=== PATIENT | female | born 1945 | race Caucasian/White ===

== ENCOUNTER 2016-09-28 11:47 | Outpatient (CLI) | payer MEDICARE ==
[~2016-09-28] VITALS: Ht 154.9 cm; Wt 114.8 kg
--- NOTE | ~2016-09-28 | HEMODYNAMI ---
PATIENT:FIDENCIO KHANNA MEDICAL RECORD: [id number] : 49 LOCATION:[facility] [address] ADMISSION DATE: 09/28/16 Generatedon:09/28/201616:24 Patient name: FIDENCIO KHANNA Patient #: [id number] SSN: : 1945 Date of study: 09/28/2016 Page: Of Hemodynamic Procedure Report Patient Data Patient Demographics Procedure consent was obtained First Name: FIDENCIO Gender: Female Last Name: JEY : 1945 [facility] Initial: Florentino Age: 71 year(s) Patient #: [id number] Race: Additional ID: [id number] Contact details Address: [place] [address] State: [place] City: [place] Zip code: [address] Past Medical History Allergies Allergen Reaction Date Comments Reported Other allergy 09/28/2016 Crestor, Neosporin, Latex, Biaxin, Sulfa, Surgical Tape Admission Admission Data Admission Date: 09/28/2016 Admission Time: 12:33 Room #: D.2124 Lab Results Lab Result Date: 09/28/2016 Lab Result Time: 0:00 Biochemistry Name Units Result Min Max CK-MB ng/ml 0.5 --(*---)-- 0 3.6 Creatinine mg/dl 1.2 --(---*)-- 0.6 1.3 Creatinine l 58 --(*---)-- 21 215 Kinase Troponin l ng/ml 0.017 --(-*--)-- 0 0.06 CBC Name Units Result Min Max Hematocrit % 31.1 *-(----)-- 42 54 Hemoglobin g/dl 9.7 *-(----)-- 13.5 17.5 Procedure Procedure Types Cath Procedure Diagnostic Procedure LHC LHC w/Coronaries Miscellaneous Procedures Moderate Sedation up to 15 minutes Procedure Description Procedure Date Procedure Date: 09/28/2016 Procedure Start Time: 16:09 Procedure End Time: 16:23 Procedure Staff Name Function Gonzalo Hidalgo MD Performing Physician Gus Trujillo RT Scrub Abelino Mott RN Nurse Gisela Silva RT Monitor Procedure Data Cath Procedure Fluoroscopy Diagnostic fluoroscopy Total fluoroscopy Time: 4 time: 4 min min Diagnostic fluoroscopy Total fluoroscopy dose: 755 dose: 755 mGy mGy Contrast Material Contrast Material Type Amount (ml) Isovue 300 74 Entry Location Entry Primary Successful Side Size Upsize Upsize Entry Closure Padron ccessful Closure Location (Fr) 1 (Fr) 2 (Fr) Remarks Device Remarks Radial Right 6 Fr Mechanical artery Short Compression Estimated blood loss: 5 ml Diagnostic catheters Device Type Used For End Catheter Placement Medtronic Dexterity 5Fr LV Angiography YOUNG 4.0 catheter (NO CHARGE) Medtronic Dexterity 5Fr Right Coronary YOUNG 4.0 catheter (NO Angiography CHARGE) Procedure Complications No complications Procedure Medications Medication Administration Route Dosage Oxygen NC 2 l/min Heparin Flush Bag added to field 2 bags (1000units/500ml NS) 0.9% NaCl I.V. 100 ml/hr Radial Cocktail added to field 1 syringe (Verapomil 2mg/Nitro 400mcg/Heparin 1500units) Fentanyl I.V. 50 mcg Versed I.V. 1 mg Radial Cocktail added to field 1 syringe (Verapomil 2mg/Nitro 400mcg/Heparin 1500units) Fentanyl I.V. 50 mcg Versed I.V. 1 mg Hemodynamics Rest HGB: 9.7 (g/dl) Heart Rate: 72 (bpm) Snapshots Pre Cath Intra NCS Post Cath Vital Signs Time Heart Resp SPO2 etCO2 HA5upwi NIBP (mmHg) Rhythm Pain Sedation Rate (ipm) (%) (mmHg) (mmHg) Status Level (bpm) 15:53:41 73 20 95 0 0 165/74(124) NSR 0 (11) 10(A) , No pain 15:58:05 69 17 97 0 0 168/74(124) NSR 0 (11) 10(A) , No pain 16:02:31 67 17 90 0 0 164/70(108) NSR 0 (11) 10(A) , No pain 16:06:53 65 15 87 0 0 153/69(114) NSR 0 (11) 9(A) , No pain 16:11:18 73 15 92 0 0 169/66(133) NSR 0 (11) 9(A) , No pain 16:15:44 75 17 88 0 0 147/54(93) NSR 0 (11) 9(A) , No pain 16:20:04 72 16 90 0 0 164/66(112) NSR 0 (11) 10(A) , No pain Medications Time Medication Route Dose Verified Delivered Reason Notes Effectiveness by by 15:57:35 Oxygen NC 2 l/min Abelino Roca Per Pantera Mott RN physician RN 15:57:46 Heparin Flush added 2 bags Abelino Roca used for Bag to Pantera Mott RN procedure (1000units/500ml field RN NS) 15:59:02 0.9% NaCl I.V. 100 Abelino Roca Per ml/hr Pantera Mott RN physician RN 15:59:24 Radial Cocktail added 1 Abelino Roca used for (Verapomil to syringe Pantera Mott RN procedure 2mg/Nitro field RN 400mcg/Heparin 1500units) 16:04:02 Fentanyl I.V. 50 mcg Abelino Roca for sedation Pantera Mott RN RN 16:04:08 Versed I.V. 1 mg Abelino Roca for sedation Pantera Mott RN RN 16:10:39 Radial Cocktail added 1 Abelino Gonzalo for (Verapomil to syringe Pantera Hidalgo MD vasodilation 2mg/Nitro field RN 400mcg/Heparin 1500units) 16:12:10 Fentanyl I.V. 50 mcg Abelino Roca for sedation Pantera Mott RN RN 16:12:14 Versed I.V. 1 mg Abelino Roca for sedation Pantera Mott RN informatics spec Log Time Note 15:32:33 Abelino Mott RN sent for patient. Start room use. 15:32:34 Time tracking: Regular hours 15:32:41 Plan of Care:Hemodynamics will remain stable., Cardiac rhythm will remain stable., Comfort level will be maintained., Respiratory function will remain adequate., Patient/ family verbilizes understanding of procedure., Procedure tolerated without complication., Recovers from procedure without complications.. 15:41:39 Patient received from PCU to CCL 1 Alert and oriented. Tansferred to table in Supine position. 15:41:44 Warm blankets applied, and robert hugger turned on for patient comfort. 15:41:45 Correct patient and procedure confirmed by team. 15:41:46 Signed procedure consent form obtained from patient. 15:41:46 ECG and BP/O2 sat monitors applied to patient. 15:41:47 Full Disclosure recording started 15:52:39 Vital chart was started 15:54:16 Baseline sample Acquired. 15:54:20 Rhythm: sinus rhythm 15:54:34 H&P Date Dictated: 09/28/2016 Within 30 days and on chart., H&P Addendum completed by physician on day of procedure. (MUST COMPLETE FOR ALL OUTPATIENTS). 15:55:34 Pre-procedure instructions explained to patient. 15:55:34 Pre-op teaching completed and patient verbalized understanding. 15:55:35 Family in patients room. 15:55:41 Patient NPO since Midnight. 15:56:35 Patient allergic to Other allergyCrestor, Neosporin, Latex, Biaxin, Sulfa, Surgical Tape 15:56:37 Is the patient allergic to Iodine/contrast media? No. 15:56:45 Is patient on blood thinner?No 15:56:48 Patient diabetic? Yes. 15:56:49 If diabetic: On Metformin? Yes 15:56:53 If on Metformin: Last Dose? 09/28/2016 15:56:56 Previous problem with sedation/anesthesia? No ? 15:56:57 Snore? Yes 15:56:59 Sleep apnea? Yes 15:56:59 Deviated septum? No 15:57:00 Opens mouth fully? Yes 15:57:01 Sticks out tongue? Yes 15:57:09 Airway obstruction? Yes Asthma 15:57:12 Dentures? Yes In 15:57:15 Pre procedure: right dorsailis pedis pulse 1+ Palpable, but thready & weak; easily obliterated 15:57:17 Modified Bradley's test Ulnar < 7 seconds 15:57:19 Patient pain scale 0/10 ?. 15:57:28 IV patent on arrival in left antecubital with 0.9% NaCl at O. 15:57:35 Oxygen 2 l/min NC was administered by Abelino oMtt RN; Per physician; 15:57:46 Heparin Flush Bag (1000units/500ml NS) 2 bags added to field was administered by Abelino Mott RN; used for procedure; 15:58:12 Lab Result : Creatinine 1.2 mg/dl 15:58:12 Lab Result : Creatinine Kinase 58 l 15:58:12 Lab Result : CK-MB 0.5 ng/ml 15:58:12 Lab Result : Troponin l 0.017 ng/ml 15:58:12 Lab Result : Hemoglobin 9.7 g/dl 15:58:12 Lab Result : Hematocrit 31.1 % 15:58:16 Lab results completed and on chart. 15:58:19 Right Radial & Right Groin area was prepped with chlora-prep and draped in sterile fashion 15:58:21 Alarms reviewed by R. N. 15:58:21 Sharps counted by scrub and verified by R.N. 15:58:25 Use device set Radial Dx 15:58:26 Acist Syringe opened to sterile field. 15:58:27 Medline Cath Pack opened to sterile field. 15:58:27 Bag Decanter opened to sterile field. 15:58:28 Terumo 6Fr Slender Glidesheath opened to sterile field. 15:58:28 St Monroe 260cm J .035 wire opened to sterile field. 15:58:29 Acist Hand Control opened to sterile field. 15:58:29 Acist Manifold opened to sterile field. 15:58:30 Tegaderm 4 x 4 opened to sterile field. 15:58:30 MBrace Wrist Support opened to sterile field. 15:59:02 0.9% NaCl 100 ml/hr I.V. was administered by Abelino Mott RN; Per physician; 15:59:24 Radial Cocktail (Verapomil 2mg/Nitro 400mcg/Heparin 1500units) 1 syringe added to field was administered by Abelino Mott RN; used for procedure; 16:03:30 Final Timeout: patient, procedure, and site verified with staff and physician. All members of the team are in agreement. 16:03:35 Right Radial site verified by team. 16:03:44 Physical assessment completed. ASA score P 2 - A patient with mild systemic disease as per Gonzalo Hidalgo MD. 16:03:48 Sedation plan: IV Moderate Sedation Versed, Fentanyl 16:04:02 Fentanyl 50 mcg I.V. was administered by Abelino Mott RN; for sedation; 16:04:08 Versed 1 mg I.V. was administered by Abelino Mott RN; for sedation; 16:07:26 Zero performed for pressure channel P1 16:09:47 Procedure started. 16:09:54 Local anesthetic to right radial artery with Lidocaine 2% by Gonzalo Hidalgo MD.INITIAL ACCESS ONLY 16:10:09 A 6 Fr Short sheath was inserted into the Right Radial artery 16:10:39 Radial Cocktail (Verapomil 2mg/Nitro 400mcg/Heparin 1500units) 1 syringe added to field was administered by Gonzalo Hidalgo MD; for vasodilation; 16:11:46 A Medtronic Dexterity 5Fr YOUNG 4.0 catheter (NO CHARGE) was advanced over the wire and used for LV Angiography. 16:12:10 Fentanyl 50 mcg I.V. was administered by Abelino Mott RN; for sedation; 16:12:14 Versed 1 mg I.V. was administered by Abelino Mott RN; for sedation; 16:12:30 LV gram done using MENDES 16:12:34 Injector settings: Ml/sec: 5, Volume: 15, 16:12:39 EF : 55 % 16:13:41 A Medtronic Dexterity 5Fr YOUNG 4.0 catheter (NO CHARGE) was advanced over the wire and used for Right Coronary Angiography. 16:14:02 Cordis 6FR XBLAD 3.5 guide catheter opened to sterile field. 16:14:09 Catheter removed. 16:15:06 6 Fr XBLAD 3.5 guide catheter was inserted over the wire 16:17:03 Guide Catheter removed. unable to cannulate vessel. 16:17:13 Medtronic Launcher 6Fr EBU 3.0 guide catheter opened to sterile field. 16:17:25 6 Fr EBU 3.0 guide catheter was inserted over the wire 16:17:29 LCA angiography performed. 16:17:49 Catheter removed. 16:17:58 Sheath removed intact; hemostasis achieved with Mechanical Compression to the Right Radial artery. 16:18:08 Terumo TR Band Standard opened to sterile field. 16:18:12 Procedure ended.(Physican Out) 16:18:26 Fluoroscopy time 04.00 minutes. 16:18:29 Fluoroscopy dose: 755 mGy 16:18:29 Flurop Dose total: 755 16:18:41 Contrast amount:Isovue 300 74ml. 16:18:42 Sharps counted by scrub and verified by R.N. 16:18:44 TR band inflated with 12cc of air. 16:18:45 Insertion/operative site no bleeding no hematoma. 16:18:56 Post right radial artery:stable, clean and dry 16:19:01 Post Procedure Pulses reassessed and unchanged 16:19:13 Post-procedure physical assessment completed. ASA score P 2 - A patient with mild systemic disease as per Gonzalo Hidalgo MD. 16:19:16 Post procedure rhythm: unchanged. 16:19:18 Estimated blood loss: 5 ml 16:19:19 Post procedure instruction explained to patient.Patient verbalizes understanding. 16:19:20 Patient needs reinforcement of post procedure teaching. 16:19:29 Procedure type changed to Cath procedure, Diagnostic procedure, LHC, LHC w/Coronaries, Miscellaneous Procedures, Moderate Sedation up to 15 minutes 16:19:34 Procedure Complication : No complications 16:19:37 See physician's report for complete and final results. 16:20:24 Procedure and supply charges have been captured, reviewed, submitted and are correct. 16:23:29 Vital chart was stopped 16:23:31 Report given to Solutionary II. 16:23:34 Patient transfered to PCU with Bed. 16:23:43 Procedure ended. 16:23:43 Full Disclosure recording stopped 16:23:48 End room use (Document Last) Device Usage Item Name Manufacture Quantity Catalog Hospital Part Current Minimal Lot# / Number Charge Number Stock Stock Serial# Code Acist Acist 1 [id number] 950242 300818 20 Syringe Medical Systems Inc Medline Cardinal 1 [id number] 78765 071926 5 Cath Pack Health Bag Microtek 1 729314 82758 493712 5 Decanter Medical Inc. Terumo 6Fr Terumo 1 [id number] 528356 130424 170321 [address] [facility] [place] 1 306255 945806 697148 549834 30 260cm J .035 wire Acist Hand Acist 1 94975 449570 815602 370449 5 Control Medical Systems Inc Acist Acist 1 23718 934219 045194 281021 5 Celcuity Medical Systems Inc Tegaderm 4 3M 1 1626W 339383 606520 730795 5 x 4 MBrace Advanced 1 140-0250-00 548958 45602 943509 5 Wrist Vascular Support Dynamics Medtronic Medtronic 1 [id number] 280601 758910 5 Dexterity 5Fr YOUNG 4.0 catheter (NO CHARGE) Cordis 6FR Cardinal 1 [id number] 375059 647717 882716 10 XBLAD 3.5 Health guide catheter Medtronic Medtronic 1 [id number] 75926 626404 0 Launcher 6Fr EBU 3.0 guide catheter Terumo TR Terumo 1 [id number] 444846 322152 072197 40 Band Standard Signature Audit [place] Stage Time Signature Unsigned Intra-Procedure 09/28/2016 Gisela 4:24:10 PM Counts RT(R) Signatures Monitor : Gisela Signature : Counts RT Date : Time : [id number] [place] [address]
[2016-09-28 11:17] LABS: BASOPHILS 0.6 % (0-2); EOSINOPHILS 1.5 % (0-7); HEMATOCRIT 31.1 % (36.0-48.0); HEMOGLOBIN 9.7 g/dL (12-16); IMMATURE GRANULOCYTES 0.2 % (0-5); LYMPHOCYTES 30.3 % (15-50); MCH 26.7 pg (26.0-34.0); MCHC 31.2 g/dL (31.0-37.0); MCV 85.7 fL (80.0-100.0); MEAN PLATELET VOLUME 10.3 fL (7.4-10.4); MONOCYTES 5.9 % (2-11); NEUTROPHILS 61.5 % (40-80); PLATELET COUNT 226 10x3/uL (130-400); RBC 3.63 10x6/uL (4.00-5.40); RDW 14.2 % (11.5-14.5); WBC 5.4 10x3/uL (4.8-10.8)
[~2016-09-28 11:47] MED LIST: BENTYL10 MG PO; CELEXA20 MG PO; ESTRACE1 MG PO; GLIPIZIDE10 MG PO; IBUPROFEN800 MG PO; LISINOPRIL10 MG PO; NEURONTIN 300300 MG PO; NEURONTIN600 MG PO; PREVACID15 MG PO; SUDOGEST60 MG PO; SYNTHROID100 MCG PO; TOPROL XL50 MG PO; TYLENOL W/CODEI1 TAB PO
[2016-09-28 11:53] LABS: ALBUMIN 3.4 g/dL (3.4-5.0); ALKALINE PHOSPHATASE 69 U/L (46-116); ALT (SGPT) 20 U/L (10-68); BILIRUBIN - TOTAL 0.27 mg/dL (0.2-1.3); CALC OSMOLALITY 277 mosm/kg (275-300); CALCIUM 8.7 mg/dL (8.5-10.1); CARBON DIOXIDE 26.6 mmol/L (21.0-32.0); CHLORIDE - SERUM 104 mmol/L (98-107); CREATININE - SERUM 1.2 mg/dL (0.6-1.3); GLUCOSE 86 mg/dL (74-106); POTASSIUM - SERUM 4.3 mmol/L (3.5-5.1); PROTEIN - SERUM 6.9 g/dL (6.4-8.2); SODIUM 139 mmol/L (136-145); UREA NITROGEN 16 mg/dL (7-18); eGFR NON AFRICAN AMERICAN 47 mL/min (90-120)
[2016-09-28 12:06] LABS: CKMB 0.5 U/L (0.0-3.6); CREATINE KINASE 58 UL (21-215); TROPONIN-I < 0.017 ng/mL (0.000-0.060)
[2016-09-28 14:20] LABS: TROPONIN-I < 0.017 ng/mL (0.000-0.060)
[2016-09-28] MEDS ORDERED: BAYER CHEWABLE81 MG PO (14:45)
[2016-09-28] MEDS ORDERED: GLUCOPHAGE500 MG PO (14:45)
--- NOTE | 2016-09-28 16:22 | HP ---
PATIENT: FIDENCIO WALKER MEDICAL RECORD: [id number] ACCOUNT: [id number] LOCATION:[address] : 49 ADMISSION DATE: 09/28/16 HISTORY AND PHYSICAL EXAMINATION DIAGNOSES: 1. Chest pain compatible with angina. 2. 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 3. Hypertension. 4. Family history of coronary artery disease. 5. Irritable bowel. 6. Chronic NSAID use. HISTORY OF PRESENT ILLNESS: Mrs. Walker presents with anginal symptomatology, it has been quite severe, lasted over 1 hour today, classic chest pain for angina, dull aching sensation across the anterior chest associated with diaphoresis, radiation to the jaw area that was relieved with sublingual nitro in the Emergency Room. Her EKG is with no acute ST-T abnormalities. PHYSICAL EXAMINATION: GENERAL APPEARANCE: Well-nourished, well-developed, appears stated age. Level of distress, comfortable. PSYCHIATRIC: Mental status, alert, normal affect. Orientation, oriented to time, place and person. EYES: Lids and conjunctiva, noninjected. No discharge, no pallor. ENT: Lips, teeth, gums, normal dentition. Oropharynx, no cyanosis, no pallor. NECK: Carotid arteries, bilateral normal upstroke, no bruits, no thrills. JUGULAR VEINS: No jugular venous pressure or distention. CERVICAL LYMPH NODES: Nontender, nonenlarged. THYROID: Not enlarged. Nontender. No nodules. LUNGS: Respiratory effort, unlabored. CHEST: Normal curvature. No thoracic deformity. No chest wall tenderness. Percussion, resonant. Auscultation, clear. No wheezes, no rales, no rhonchi. CARDIOVASCULAR: Precordial exam, nondisplaced. No heaves or pericardial thrills. Rate and rhythm, regular. Heart sounds, normal S1, normal S2. No S3, no gallop, no rub. Systolic murmur, not heard. Diastolic murmur, not heard. EXTREMITIES: No cyanosis, no edema. Peripheral pulses, full and equal in all extremities, except as noted. No bruits appreciated. ABDOMEN: Soft, nondistended. Normal aorta. No bruit. Nontender. No masses. Liver, nontender, no hepatomegaly. Spleen, nontender, no splenomegaly. MUSCULOSKELETAL: No joint tenderness. No joint swelling. No erythema. NEUROLOGICAL: Normal gait, normal strength, normal tone. SKIN: Warm and dry. REVIEW OF SYSTEMS: The patient reports easy bruising but reports no swollen glands. The patient reports no fever, no night sweats, no significant weight gain, no significant weight loss. No significant exercise tolerance. The patient reports no dry eyes, no irritation, no vision change. Patient reports no difficulty hearing and no ear pain. Patient reports no frequent nose bleeds or nose and sinus problems. Patient reports on arm pain on exertion. No shortness of breath while lying down. No history of heart murmur. Patient reports no cough, no wheezing or coughing up blood. Patient reports no abdominal pain, no vomiting. Normal appetite. No diarrhea and not vomiting blood. No nausea and no constipation. Patient reports no incontinence. No difficulty urinating. No hematuria. No increased frequency. Patient reports HISTORY AND PHYSICAL [id number] FIDENCIO WALKER no muscle aches. No weakness, no arthralgias, no back pain. No swelling of the extremities. Patient reports no abnormal mole, no jaundice, no rashes. Reports no loss of consciousness. No weakness and no numbness. No seizures, dizziness, or headaches. The patient reports no depression, no sleep disturbance, feeling safe in a relationship and no alcohol abuse. Patient reports on fatigue. Reports no runny nose or sinus pressure. No itching, no hives, and no frequent sneezing. OVERALL IMPRESSION: Chest pain compatible with angina, most likely she has hemodynamically significant coronary artery disease. We will proceed with coronary angiography. Further care depends upon findings of the angiography. TRANSINT:[id number] Voice Confirmation ID: [id number] DOCUMENT ID: [id number] TAIWO KHANNA MD at 1622 CC: [id number] DICTATION DATE: 09/28/16 1157 AMPHIBIOUS OPERATIONS OFFICER: 09/28/16 1438 ADM IN [address] [id number] [place] [address]
[2016-09-28 17:14] VITALS: BP 113/59; Ht 154.9 cm; Wt 114.8 kg
[2016-09-28 17:30] VITALS: BP 134/49
[2016-09-28 20:00] VITALS: BP 173/56
[2016-09-29] VITALS: BP 128/53
[2016-09-29 04:00] VITALS: BP 118/42
[2016-09-29 07:54] VITALS: BP 143/58
[2016-09-29 12:01] VITALS: BP 163/59
--- NOTE | 2016-09-30 16:36 | DS ---
PATIENT:FIDENCIO WALKER :49 MEDICAL RECORD: [id number] DISCHARGE SUMMARY ADMISSION DATE: 09/28/16 DISCHARGE DATE: 09/29/16 DISCHARGE DIAGNOSES: 1. Chest pain of unknown etiology. 2. Normal cardiac catheterization. HISTORY: Mrs. Walker presents with chest pain; however, cardiac catheterization was normal. She was discharged home with no change in her medications. Follow up with primary care physician for any further chest pain. TRANSINT:[id number] Voice Confirmation ID: [id number] DOCUMENT ID: [id number] TAIWO KHANNA MD at 1636 CC: [id number] DICTATION DATE: 09/28/16 1624 SUPPOSITORY MOLDING MACHINE OPERATOR: 09/29/16 1129 [facility] CLI 09/29/[address] [address]
--- NOTE | 2016-09-30 16:36 | OP ---
PATIENT NAME: FIDENCIO KHANNA MEDICAL RECORD: [id number] :49 LOCATION:D.OPS ADMISSION DATE: SURGEON: TAIWO KHANNA MD DATE OF OPERATION: 09/28/2016 PROCEDURES: 1. Left heart catheterization. 2. Selective coronary angiography. 3. Left ventriculogram. INDICATION: Chest pain of unknown etiology. PROCEDURE IN DETAIL: After informed consent was obtained and after detailed explanation of risks, benefits as well as alternative therapies, the patient elected to proceed with angiogram and heart catheterization. The right radial area was prepped and draped in normal sterile fashion. The right radial artery was cannulated via modified Seldinger technique with placement of 5-Irish sheath. All catheters exchanged through this sheath. FINDINGS: The left ventriculogram was performed in standard 30-degree MENDES view, reveals good cardiac wall motion throughout all segments. Overall ejection fraction estimated at 60%. SELECTIVE CORONARY ANGIOGRAPHY: Left main, left anterior descending, left circumflex, right coronary smooth-walled vessels with no angiographic evidence of coronary artery disease. OVERALL IMPRESSION: 1. No angiographic evidence of coronary artery disease. 2. Normal left heart pressures. 3. Normal left ventricular systolic function. Chest pain is noncardiac in etiology. No further cardiac workup needs to be ascertained. TRANSINT:[id number] Voice Confirmation ID: [id number] DOCUMENT ID: [id number] TAIWO KHANNA MD at 1636 CC: [id number] DICTATION DATE: 09/28/16 1625 GARMENT LINER: 09/29/16 1144 [facility] CLI 09/29/[address] [address]
== END 2016-09-29 12:50 | disposition home or self-care (01) ==
LOC: OBSVTIME → D.OPS 11:47 → D.M2 12:33 → D.ER 12:33 → D.M2 12:33 → OBSVTIME 12:33 → EDSTATUS 16:19 → D.OPS 09-29 12:50 → D.M2 09-29 12:50
PROVIDERS: Emergency Medicine
DX: R07.9 Chest pain, unspecified (principal); Z82.49 Family history of ischemic heart disease and other diseases of the circulatory system; I10 Essential (primary) hypertension; E11.9 Type 2 diabetes mellitus without complications; K58.9 Irritable bowel syndrome, unspecified; Z01.812 Encounter for preprocedural laboratory examination

== ENCOUNTER → 2016-11-28 16:41 | Outpatient (CLI) | payer MEDICARE ==
[2016-09-28 17:14] VITALS: BMI 42.0
[~2016-11-28 16:41] MED LIST changes: +BAYER CHEWABLE81 MG PO; +GLUCOPHAGE500 MG PO
== END | disposition home or self-care (01) ==
LOC: D.MAMMO 16:00
DX: Z12.31 Encounter for screening mammogram for malignant neoplasm of breast (principal)

== ENCOUNTER 2018-03-12 19:00 | Outpatient (CLI) | payer MEDICARE ==
[2016-09-28 17:14] VITALS: BMI 42.0
== END 2018-03-12 23:59 | disposition home or self-care (01) ==
LOC: D.MAMMO 19:00
DX: Z12.31 Encounter for screening mammogram for malignant neoplasm of breast (principal)

== ENCOUNTER → 2018-04-09 18:38 | Outpatient (CLI) | payer MEDICARE ==
[2016-09-28 17:14] VITALS: BMI 42.0
== END | disposition home or self-care (01) ==
LOC: D.MAMMO 08:30
DX: R92.8 Other abnormal and inconclusive findings on diagnostic imaging of breast (principal)

== ENCOUNTER → 2018-12-03 15:06 | Outpatient (CLI) | payer MEDICARE ==
[2016-09-28 17:14] VITALS: BMI 42.0
== END | disposition home or self-care (01) ==
LOC: D.MRI 15:00
PROVIDERS: ATTEND Orthopaedic Surgery
DX: M54.12 Radiculopathy, cervical region (principal)

== ENCOUNTER 2019-03-23 16:57 | Emergency (ER) | payer MEDICARE ==
[~2019-03-23] VITALS: Ht 154.9 cm; Wt 104.5 kg
[2019-03-23 17:07] VITALS: Ht 154.9 cm; Wt 104.5 kg
[2019-03-23] MEDS ORDERED: NAPROSYN500 MG PO (18:48)
[2019-03-23] MEDS ORDERED: MEDROL DOSE PACK4 MG PO (18:53)
[2019-03-23 19:37] VITALS: BP 124/75
== END 2019-03-23 19:37 | disposition home or self-care (01) ==
LOC: D.ER 16:57
DX: M54.2 Cervicalgia (principal)

== ENCOUNTER → 2019-12-16 13:40 | Outpatient (CLI) | payer MEDICARE ==
[2019-03-23 17:07] VITALS: BMI 43.5
[~2019-12-16 13:40] MED LIST changes: +MEDROL DOSE PACK4 MG PO; +NAPROSYN500 MG PO
== END | disposition home or self-care (01) ==
LOC: D.US 13:30
PROVIDERS: ATTEND Nurse Practitioner Family
DX: I12.9 Hypertensive chronic kidney disease with stage 1 through stage 4 chronic kidney disease, or unspecified chronic kidney disease (principal); E11.22 Type 2 diabetes mellitus with diabetic chronic kidney disease; N18.3 Chronic kidney disease, stage 3 (moderate); Z68.39 Body mass index [BMI] 39.0-39.9, adult; R89.9 Unspecified abnormal finding in specimens from other organs, systems and tissues; K21.9 Gastro-esophageal reflux disease without esophagitis; E03.9 Hypothyroidism, unspecified; Z79.84 Long term (current) use of oral hypoglycemic drugs

== ENCOUNTER → 2020-02-18 13:12 | Outpatient (CLI) | payer MEDICARE ==
[2019-03-23 17:07] VITALS: BMI 43.5
== END | disposition home or self-care (01) ==
LOC: D.US 13:12
PROVIDERS: ATTEND Nurse Practitioner Family
DX: N18.3 Chronic kidney disease, stage 3 (moderate) (principal); I10 Essential (primary) hypertension; E13.9 Other specified diabetes mellitus without complications; Z68.39 Body mass index [BMI] 39.0-39.9, adult